=== PATIENT | male | born 1980 | race Caucasian/White ===

== ENCOUNTER 2020-09-25 22:45 | Emergency (ER) | payer SELFPAY ==
[~2020-09-25] VITALS: Ht 182.9 cm; Wt 74.8 kg
[2020-09-25 22:50] VITALS: BP 124/71
--- NOTE | 2020-09-25 22:50 | NUR ---
40 y/o male, biba due to c/o Anxiety. Family called paramedics due to patient observed with profuse sweating, c/o abd/episgastric pain, and c/o hand tightness. Patient also states feeling constipated, no BM x8days. He states seeing blood in stool. BS @140 taken and EKG SR @91bpm by paramedics. PMH: Anxiety Allergy: nka Home Meds: Tylenol, Lexapro, Metoprolol
[2020-09-25] MEDS ORDERED: PANTOPRAZOLE 40 MG TABEC PO ONE (23:50)
[2020-09-25] MEDS ORDERED: LORazepam 1 MG TAB PO ONE (23:50)
[2020-09-25] MEDS ORDERED: MAGNESIUM CITRATE 300 ML BTL PO ONE (23:50)
[2020-09-26] MEDS ORDERED: PANT40EC PO (00:59)
--- NOTE | 2020-09-26 01:17 | NUR ---
Patient discharged with v/s stable. Written and verbal after care instructions given and explained. Patient alert, oriented and verbalized understanding of instructions. Ambulatory with steady gait. All questions addressed prior to discharge. ID band removed. Patient advised to follow up with PMD. Rx of Protonix given. Patient educated on indication of medication including possible reaction and side effects. Opportunity to ask questions provided and answered.
== END 2020-09-26 01:17 | disposition home or self-care (01) ==
LOC: MED 22:45
DX: F41.9 Anxiety disorder, unspecified (principal); R10.9 Unspecified abdominal pain; R07.9 Chest pain, unspecified; F32.9 Major depressive disorder, single episode, unspecified; I10 Essential (primary) hypertension
CPT/HCPCS: 71045; 74018; 93005; 99283; 99284